=== PATIENT | female | born 1990 | race African-American/Black ===

== ENCOUNTER 2018-11-19 07:06 | Emergency (ER) | payer OTHER, SELFPAY ==
[2018-11-19 07:35] LABS: Blood, Urine Large (Negative); Clarity TURBID (Clear); Glucose, Urine (Dipstick) Negative (Negative); Protein, Urine (Dipstick) 300 mg/dL (Neg-Trace); Specific Gravity, Urine 1.028 (1.002-1.036)
[2018-11-19 07:38] LABS: RBC/HPF GREATER THAN 50-TNTC HPF (0-3)
[2018-11-19 07:44] LABS: Pathc Cast-AUWi Flag 11.37 (0-2.49)
[2018-11-19 07:59] LABS: Bilirubin Unable to Interpret (Negative); Nitrite Unable to Interpret (Negative)
[2018-11-19 08:00] LABS: Bacteria/HPF 2+ HPF (None Seen); Leukocyte Large (Negative)
[2018-11-19 08:02] LABS: Trichomonas/HPF None Seen HPF (None Seen); Yeast-All Forms None Seen HPF (None Seen)
== END 2018-11-19 08:33 | disposition home or self-care (01) ==
LOC: ERS 07:06
DX: N39.0 Urinary tract infection, site not specified (principal); J45.909 Unspecified asthma, uncomplicated
CPT/HCPCS: 81003; 81015; 99283

== ENCOUNTER 2019-12-10 18:29 | Emergency (ER) | payer OTHER, SELFPAY | END 2019-12-10 20:16 | disposition home or self-care (01) | LOC: ERS 18:29 | DX: J06.9 Acute upper respiratory infection, unspecified (principal) | CPT/HCPCS: 87081; 87430; 99283 ==

== ENCOUNTER 2020-07-20 19:44 | Observation (INO) | payer SELFPAY ==
[2020-07-20 20:28] LABS: #Basophils 0.2 thou/uL (0.0-0.2); #Eosinphils 0.2 thou/uL (0.0-0.7); #Lymphocytes 2.8 thou/uL (1.20-3.40); #Monocytes 0.7 thou/uL (0.11-0.59); #Neutrophils 3.5 thou/uL (1.40-6.50); %Basophils 2.5 % (0.0-1.0); %Eosinophils 2.3 % (0.0-10.0); %Lymphocytes 38.2 % (21.0-51.0); %Monocytes 9.3 % (0.0-10.0); %Neutrophils 47.8 % (42.0-75.0); Hemoglobin 12.4 g/dL (12.0-16.0); Mean Corpuscular HGB CONC 33.1 g/dL (32.0-36.0); Mean Corpuscular Hemoglobin 29.4 pg (27.0-31.0); Mean Corpuscular Volume 88.9 fL (78.0-98.0); Mean Platelet Volume 7.6 fL (7.4-10.4); Platelet Count 231 thou/uL (130-400); RBC Distribution Width 12.4 % (11.5-14.5); White Blood Cell (WBC) Count 7.4 thou/uL (4.8-10.8)
[2020-07-20 20:59] LABS: Bilirubin Negative (Negative); Blood, Urine 3+ (Negative); Clarity Clear (Clear); Glucose, Urine (Dipstick) Normal (Negative); Ketone, Urine Negative (Negative); Leukocyte 25 Leu/uL (Negative); Nitrite Negative (Negative); Protein, Urine (Dipstick) Negative (Neg-Trace); RBC/HPF 0-3 HPF (0-3); Specific Gravity, Urine 1.019 (1.002-1.036); Urobilinogen Normal mg/dL (Less than 2); WBC/HPF 0-3 HPF (0-3); pH, Urine 6.5 (5.0-9.0)
[2020-07-20] MEDS ORDERED: Acetaminophen 500 MG TAB ONE (21:02)
[2020-07-20 21:03] LABS: Bacteria/HPF Rare-Few HPF (None Seen)
[2020-07-20] MEDS ORDERED: Lorazepam 2 MG/ML VIAL ONE (22:22)
--- NOTE | 2020-07-20 22:42 | ULT ---
PELVIC ULTRASOUND: 07/20/20 HISTORY: Vaginal bleeding, positive test, left sided pain. Real time imaging of the pelvis was performed transabdominally. This shows an intrauterine gestationa l sac with a pole and yolk sac. The crown to rump length measurements are 6.7 cm which would co rrespond to 6 weeks, 4 days. heart rate is at 123 beats per minute. There is a prominent subcho rionic bleed adjacent to this measuring 1.6 cm. In the region of the left adnexa is a slightly more oblong shaped cystic structure with dense echogen icity surrounding this. There is what appears to be a yolk sac and possibly a pole. This was di scussed with the technologist who felt very definite that this did represent a pole. The crown to rump length measurements were 2.9 cm corresponding to 5 weeks, 6 days. heart rate obtained w as 113 beats per minute. There is free fluid also present within the pelvis. The right ovary is normal in appearance. DOPPLER EVALUATION WITH SPECTRAL ANALYSIS: Normal flow is shown to both ovaries. IMPRESSION: Intrauterine which is viable which shows a moderate subchorionic hemorrhage. Gestational ag e would be 6 weeks, 3 days. There is a cystic appearing area which has the appearance of a possible y olk sac and pole in the left adnexal region has a dense echogenic area surrounding it and raise s the possibility of this being an ectopic in which case this would represent a heterotopic pregnanc y which is very rare, but this possibility is not excluded on the basis of this exam. These findings were discussed with referring health care provider. POS: OFF
[2020-07-20] MEDS ORDERED: Misoprostol 200 MCG TAB ONE (23:39)
[2020-07-21] MEDS ORDERED: Fentanyl 100 MCG/2 ML VIAL ONE (01:09)
[2020-07-21] MEDS ORDERED: Bupivacaine HCl 0.5%/Epinephrine 1:200,000/PF 30 ml Vial ONE (01:42)
[2020-07-21] MEDS ORDERED: Promethazine HCl 25 MG/ML VIAL SLOW IVP PRN (02:59)
[2020-07-21] MEDS ORDERED: Ondansetron HCl/PF 4 MG/2 ML Vial IVP PRN (02:59)
[2020-07-21] MEDS ORDERED: Promethazine HCl 25 MG/ML VIAL IM PRN (02:59)
[2020-07-21] MEDS ORDERED: FLU VACC QS2020-21(6MOS UP)/PF 60 MCG/0.5 ML SYRINGE IM ONE (05:15)
--- NOTE | 2020-07-21 08:52 | OP ---
DATE OF PROCEDURE: 07/21/2020 PREOPERATIVE DIAGNOSES: 1. Confirmed heterotopic at approximately six weeks gestation with confirmed intrauterine and left tubal by heartbeat on ultrasound. 2. Threatened AB with vaginal bleeding. POSTOPERATIVE DIAGNOSES: 1. Confirmed heterotopic at approximately six weeks gestation with confirmed intrauterine and left tubal by heartbeat on ultrasound. 2. Threatened AB with vaginal bleeding. PROCEDURE PERFORMED: Diagnostic laparoscopy with left partial salpingectomy. ANESTHESIA: General. ESTIMATED BLOOD LOSS: Less than 50 mL. COMPLICATIONS: None. COUNTS: Correct. SPECIMEN: Left tubal segment with products of conception. DESCRIPTION OF PROCEDURE: Ms. Sravani Gaffney is a 29-year-old female G3, P2, presenting to the emergency room for vaginal bleeding, where she was diagnosed with subchorionic hemorrhage and threatened AB with a concomitant left tubal confirmed by heartbeat. The patient expressed strong desire to maintain her intrauterine . The patient was counseled on the risks and benefits of surgery and the possibility of salpingectomy versus salpingostomy versus other procedures as indicated. The patient expressed understanding, provided written consent. The patient was taken to the operating room, where she was placed under general anesthesia in a dorsal lithotomy position. She was prepared and draped in normal sterile fashion. Attention was placed vaginally, where a sponge stick was placed vaginally to assist with uterine manipulation should that be necessary. Attention was then placed abdominally. A 5-mm skin incision was placed in the base of the umbilicus followed by a 10 mm incision suprapubically at the midline and another 5 mm incision in the left lateral side. A Veress needle was introduced through the umbilical incision and the abdomen was insufflated to 15 mmHg. Entry pressure was 3 mmHg. A 5 mm trocar was then introduced through the umbilicus and confirmed proper placement by laparoscope. Two additional ports were then placed after confirming the tubal . An 11 mm was placed suprapubically and another 5 mm laterally. The patient had a small amount of blood in the pelvis. There was no active bleeding from a rupture, but tubal was noted to be in the fimbrial portion of the tube. Attempt was made to squeeze the ectopic out of the end of the tube but given its proximity, this was not going to be possible. With the LigaSure device, the end of the tube was transected off and removed with an EndoCatch bag through the suprapubic port. The abdomen was then irrigated gently and surgical site was noted to be hemostatic. At this point in time, surgery was completed and the ports were removed after the abdomen was deflated. 0 Vicryl UR-6 was then used to make a single incision closure of the fascia suprapubically. Skin was closed with 4-0 Monocryl on all three incisions. The patient was extubated. The sponge stick was removed vaginally and the patient was taken to recovery room in stable condition. Job ID: [id number]
[2020-07-21] MEDS ORDERED: PROPOFOL 200 MG/20 ML VIAL ONE (09:26)
[2020-07-21] MEDS ORDERED: Rocuronium Bromide 10 MG/ML (10ML VIAL) ONE (09:26)
[2020-07-21] MEDS ORDERED: Succinylcholine Chloride 20 MG/ML 10 ml SYRINGE FS ONE (09:26)
[2020-07-21] MEDS ORDERED: Glycopyrrolate 0.2 MG/ML 5 ML SYRINGE ONE (09:26)
[2020-07-21] MEDS ORDERED: Lidocaine 1% PF 5 ML VIAL ONE (09:26)
[2020-07-21] MEDS ORDERED: PHENYLEPHRINE-NS 100 MCG/ML 10 ML SYRINGE ONE (09:26)
[2020-07-21] MEDS ORDERED: Ondansetron PF 4 MG/2 ML Vial ONE (09:26)
[2020-07-21 12:12] VITALS: BMI 21.1
[2020-07-21 12:31] VITALS: BP 108/71; TEMP 97.7
--- NOTE | 2020-07-22 10:06 | DIS ---
DATE OF ADMISSION: 07/21/2020 DATE OF DISCHARGE: 07/21/2020 ADMITTING DIAGNOSES: Heterotopic of approximately 6 weeks with a left tubal , threatened . DISCHARGE DIAGNOSES: Heterotopic of approximately 6 weeks with a left tubal , threatened . PROCEDURE: Diagnostic laparoscopy with left partial salpingectomy. HOSPITAL COURSE: The patient is a 29-year-old female who presented for vaginal bleeding with a known intrauterine diagnosed by ultrasound at her OB provider in [place]. During her workup, the patient was noted to have a subchorionic hemorrhage and was also noted to have an ectopic in the left tube confirmed by gestational sac, yolk sac, and a pole with heartbeat. The patient was taken to the operating room, where she had a diagnostic laparoscopy where her ectopic was removed by partial salpingectomy. The patient given the hour of the surgery, remained in the hospital for rest. This morning she reports that she is tolerating p.o. Pain control is appropriate and is otherwise doing fine. PHYSICAL EXAMINATION: VITAL SIGNS: Blood pressure 112/61, temperature 98.5, pulse 92, respiratory rate of 14, saturating 99% on room air. GENERAL: She appears to be in some distress, appropriate for postoperative state. Otherwise, she is doing well. The incisions are clean, dry, and intact. DISCHARGE INSTRUCTIONS: The patient will be discharged home with instructions to take ibuprofen and Tylenol [id number] for pain control. She is also being sent with tramadol 50 mg to be taken one tablet every 6 hours as needed for pain #10. She has instructions to follow up with her primary OB in [place] within 3 days for followup. Job ID: [id number]
== END 2020-07-21 12:31 | disposition home health service (06) ==
LOC: ERS 19:44 → SDC/OP 07-21 01:10 → 3SW 07-21 03:02
PROVIDERS: ADMIT Obstetrics & Gynecology; ATTEND Obstetrics & Gynecology
PROC: 10T24ZZ Resection of Products of Conception, Ectopic, Percutaneous Endoscopic Approach (ICD-10-PCS; principal; 2020-07-21)
PROC: 0UT64ZZ Resection of Left Fallopian Tube, Percutaneous Endoscopic Approach (ICD-10-PCS; 2020-07-21)
DX: O00.112 Left tubal pregnancy with intrauterine pregnancy (principal); Z88.5 Allergy status to narcotic agent
CPT/HCPCS: 36415; 76856; 81003; 81015; 84702; 85025; 86850; 86900; 86901; 88305; 96374; G0378; J2060; J2405; J2704; J3010

== ENCOUNTER 2020-10-17 08:33 | Emergency (ER) | payer OTHER, SELFPAY ==
[2020-10-17] MEDS ORDERED: Acetaminophen 500 MG TAB ONE (09:04)
--- NOTE | 2020-10-17 10:18 | ULT ---
Limited Obstetrical Ultrasound INDICATION: Fall with history of pelvic pain TECHNIQUE: Grayscale, M-mode Doppler, color Doppler and spectral Doppler images were obtained. Oscar yan is focused on the clinical indication. COMPARISON: Pelvic ultrasound dated July 20, 2020 FINDINGS: GESTATION: Number of gestations: Single. Presentation: Breech. heart rate: 149 bpm. Placental location: Anterior Previa: No evidence for previa. Cervical length: 5.7 cm LILIAN: 4.0 cm. LIMITED SURVEY: No abnormality as visualized. BIOMETRY: Biparietal diameter: 4.35cm, 19 weeks and 1 day, 64th percentile. Head circumference: 17.23 cm, 19 weeks and 6, 84th percentile Abdominal circumference: 13.49 cm, 19 weeks and 0 days, 49th percentile Femoral length: 3.08cm, 19 weeks and 4 days, 69th percentile Estimated weight: 284 g +/- 42g (0 lbs. 10 oz.+ or minus one ounces), 71st percentile The average gestational age by ultrasound is 19 weeks and 3 dayswith estimated due date of March 10. The estimated dates by clinical data is 18 weeks and 6 dayswith estimated due date of March 14, 2021. The adnexa were not identified. IMPRESSION: 1. Single live intrauterine gestation with size and dates as above. 2. Oligohydramnios
== END 2020-10-17 10:47 | disposition home or self-care (01) ==
LOC: ERS 08:33
DX: O99.891 Other specified diseases and conditions complicating pregnancy (principal); R10.30 Lower abdominal pain, unspecified; O99.512 Diseases of the respiratory system complicating pregnancy, second trimester; J45.909 Unspecified asthma, uncomplicated; Z3A.19 19 weeks gestation of pregnancy; W10.9XXA Fall (on) (from) unspecified stairs and steps, initial encounter
CPT/HCPCS: 76815

== ENCOUNTER 2020-11-25 10:20 | Emergency (ER) | payer MEDICAID, SELFPAY | END 2020-11-25 11:49 | disposition home or self-care (01) | LOC: ERS 10:20 | DX: O99.342 Other mental disorders complicating pregnancy, second trimester (principal); F41.9 Anxiety disorder, unspecified; O99.512 Diseases of the respiratory system complicating pregnancy, second trimester; J45.909 Unspecified asthma, uncomplicated; Z3A.24 24 weeks gestation of pregnancy | CPT/HCPCS: 36416; 99283 ==

== ENCOUNTER 2021-03-06 11:21 | Emergency (ER) | payer OTHER ==
[2021-03-06] MEDS ORDERED: Ondansetron PF 4 MG/2 ML Vial ONE (11:31)
[2021-03-06] MEDS ORDERED: Morphine 4 MG/ML VIAL ONE (11:31)
[2021-03-06 11:51] LABS: #Basophils 0.1 thou/uL (0.0-0.2); #Eosinphils 0.2 thou/uL (0.0-0.7); #Lymphocytes 2.4 thou/uL (1.20-3.40); #Monocytes 0.9 thou/uL (0.11-0.59); #Neutrophils 3.8 thou/uL (1.40-6.50); %Basophils 1.1 % (0.0-1.0); %Eosinophils 2.8 % (0.0-10.0); %Lymphocytes 32.5 % (21.0-51.0); %Monocytes 11.9 % (0.0-10.0); %Neutrophils 51.8 % (42.0-75.0); Mean Corpuscular HGB CONC 33.1 g/dL (32.0-36.0); Mean Corpuscular Hemoglobin 27.6 pg (27.0-31.0); Mean Corpuscular Volume 83.4 fL (78.0-98.0); Mean Platelet Volume 8.2 fL (7.4-10.4); Platelet Count 189 thou/uL (130-400); RBC Distribution Width 14.2 % (11.5-14.5); Red Blood Cell (RBC) Count 3.99 mill/uL (4.20-5.40); White Blood Cell (WBC) Count 7.3 thou/uL (4.8-10.8)
[2021-03-06 12:17] LABS: ALT (SGPT) 9 U/L (8-55); AST (SGOT) 13 U/L (5-34); Albumin 3.5 g/dL (3.5-5.0); Alkaline Phosphatase 257 U/L (40-110); Anion Gap 12 mmol/L (10-20); BUN (Urea Nitrogen) 6 mg/dL (7.0-18.7); Bilirubin, Total 0.5 mg/dL (0.2-1.2); Calc. Creatinine Clearance 0 mL/min (70-130); Carbon Dioxide 19 mmol/L (22-29); Chloride 109 mmol/L (98-107); Glucose 88 mg/dL (70-105); Potassium 4.1 mmol/L (3.5-5.1); Protein, Total 6.5 g/dL (6.0-8.3); Sodium 136 mmol/L (136-145)
== END 2021-03-06 11:57 | disposition short-term general hospital (02) ==
LOC: ERS 11:21
DX: O33.1 Maternal care for disproportion due to generally contracted pelvis (principal)
CPT/HCPCS: 36415; 80053; 85025; 86900; 86901; 96374; 96375; J2270; J2405

== ENCOUNTER 2022-03-24 17:36 | Emergency (ER) | payer OTHER ==
[~2022-03-24 17:36] MED LIST: Iopamidol-370 76% 500 ML 1 ML ONE
[2022-03-24 18:28] LABS: #Eosinphils 0.1 thou/uL (0.0-0.7); #Monocytes 0.4 thou/uL (0.11-0.59); #Neutrophils 4.7 thou/uL (1.40-6.50); %Basophils 0.4 % (0.0-1.0); %Eosinophils 0.7 % (0.0-10.0); %Lymphocytes 27.7 % (21.0-51.0); %Monocytes 5.9 % (0.0-10.0); %Neutrophils 65.3 % (42.0-75.0); Hemoglobin 13.1 g/dL (12.0-16.0); Mean Corpuscular HGB CONC 32.2 g/dL (32.0-36.0); Mean Corpuscular Hemoglobin 29.5 pg (27.0-31.0); Mean Corpuscular Volume 91.5 fL (78.0-98.0); Mean Platelet Volume 7.6 fL (7.4-10.4); Platelet Count 205 thou/uL (130-400); RBC Distribution Width 13.2 % (11.5-14.5); Red Blood Cell (RBC) Count 4.45 mill/uL (4.20-5.40); White Blood Cell (WBC) Count 7.1 thou/uL (4.8-10.8)
[2022-03-24 18:33] LABS: BHCG - Serum Negative (NEGATIVE); Pregs Control Background? CLEAR/WHITE (CLR/WHITE); Pregs Control Bar Appear? YES (CONTROL BAR)
[2022-03-24 18:49] LABS: ALT (SGPT) 16 U/L (8-55); AST (SGOT) 11 U/L (5-34); Albumin 4.6 g/dL (3.5-5.0); Alkaline Phosphatase 41 U/L (40-110); Anion Gap 13 mmol/L (10-20); BUN (Urea Nitrogen) 10 mg/dL (7.0-18.7); Calc. Creatinine Clearance 0 mL/min (70-130); Calcium 9.3 mg/dL (7.8-10.44); Carbon Dioxide 25 mmol/L (22-29); Chloride 110 mmol/L (98-107); Estimated GFR 107; Globulin 2.7 g/dL (2.4-3.5); Glucose 86 mg/dL (70-105); Potassium 3.6 mmol/L (3.5-5.1); Protein, Total 7.3 g/dL (6.0-8.3); Sodium 144 mmol/L (136-145)
[2022-03-24] MEDS ORDERED: Ketorolac Tromethamine 30 MG/ML VIAL ONE (20:01)
== END 2022-03-24 20:49 | disposition home or self-care (01) ==
LOC: ERS 17:36
DX: M54.2 Cervicalgia (principal); M25.552 Pain in left hip; V89.2XXA Person injured in unspecified motor-vehicle accident, traffic, initial encounter
CPT/HCPCS: 36415; 70450; 71260; 72125; 74177; 80053; 84703; 85025; 93005; 96372; J1885; Q9967